=== PATIENT | male | born 1950 | race African-American/Black ===

== ENCOUNTER 2017-04-01 14:44 | Emergency (ER) | payer OTHER, MEDICARE ==
[~2017-04-01] VITALS: Ht 166.4 cm; Wt 73.5 kg
[~2017-04-01 14:44] MED LIST: FLOMAX(MONOGRA0.4 MG PO; KEFLEX500 M1 PO; LEVEMIR 10100 UNITS/ SC; METFORMIN ER500 MG PO; MOTRIN800 MG PO; PERCOCET 325 MG1 TA2 PO; ZOFRAN ODT4 MG PO
[2017-04-01 15:03] VITALS: BP 147/77
--- NOTE | 2017-04-01 15:52 | RADIOLOGY REPORT ---
EXAMINATION: XR CHEST CLINICAL INFORMATION: Cough, yellow sputum COMPARISON: 01/21/2012 TECHNIQUE: 2 views of the chest were obtained. FINDINGS: The lungs are clear with no focal consolidation. No evidence of pneumothorax, pulmonary edema, or pleural effusions. The cardiomediastinal silhouette is unremarkable. No acute osseous findings. IMPRESSION: No acute cardiopulmonary findings.
--- NOTE | 2017-04-01 15:58 | ED INFLUENZA/URI COMPLAINT ---
History of Present Illness General Chief Complaint: Upper Respiratory Sx/Fever Stated Complaint: ?URI Source: patient Exam Limitations: no limitations Vital Signs & Intake/Output Vital Signs & Intake/Output Vital Signs Date Time Temp Pulse Resp B/P B/P Pulse O2 O2 Flow FiO2 Mean Ox Delivery Rate 04/01 1503 97.1 96 18 147/77 96 Room Air Allergies Coded Allergies: NO KNOWN ALLERGIES (09/16/15) Reconcile Medications Azithromycin (Zithromax) 250 MG TABLET 1 DP PO AD BRONCHITIS 2 the first day followed by 1 for days 2-5 Cephalexin (Keflex) 500 MG CAPSULE 1 CAP PO 4 TIMES/DAY infection Codeine Phosphate/Guaifenesi (Cheratussin AC Syrup) 10 MG-100 MG/5 ML LIQUID 10 ML PO Q6-8 PRN COUGH Ibuprofen (Motrin) 800 MG TAB 1 TAB PO 4 TIMES/DAY PRN PAIN Insulin Detemir (Levemir) 100 UNIT/ML VIAL DM (Reported) Metformin Hydrochloride (Metformin ER) [address] 1 TAB PO DAILY DM (Reported ) Ondansetron (Zofran Odt) 4 MG TAB.RAPDIS 1 TAB PO 4 TIMES/DAY PRN NAUSEA Ondansetron (Zofran Odt) 4 MG TAB.RAPDIS 1 TAB PO Q8HR PRN NAUSEA OXYCODONE HCL/ACETAMINOPHEN (Percocet 5-325 MG Tablet) 325 MG/5 MG TAB 1-2 TAB PO Q4-6 PRN PRN PAIN TWENTY...[id number] Tamsulosin Hydrochloride (Flomax) 0.4 MG CAP.ER.24H 1 CAP PO DAILY kidney stones Triage Note: PT COMPLAINS OF COUGH X 6 DAYS PRODUCTIVE OF YELLOW SPUTUM Triage Nurses Notes Reviewed? yes Onset: Gradual Duration: day(s): (6) Timing: recent history Severity: mild, moderate No Modifying Factors: none HPI: 66 year old male who presents to [facility] ER for chief complaint of cough and green sputum production for the past 6 days. Denies any fever, chills, chest pain. No recent travel or sick contacts. Past History Travel History Traveled to [place] past 21 day No Medical History Any Pertinent Medical History? see below for history Neurological: NONE EENT: NONE Cardiovascular: hypertension Respiratory: asthma Gastrointestinal: NONE Hepatic: NONE Renal: nephrolithiasis Musculoskeletal: NONE Psychiatric: NONE Endocrine: diabetes Blood Disorders: NONE Cancer(s): NONE SPECIAL SHOPPER/Reproductive: NONE Surgical History Surgical History: non-contributory Psychosocial History What is your primary language Romansh Tobacco Use: Never used ETOH Use: denies use Illicit Drug Use: denies illicit drug use Family History Hx Contributory? No Review of Systems Review of Systems Constitutional: Denies: chills, fever. EENTM: Reports: no symptoms. Respiratory: Reports: cough, short of breath, sputum production. Cardiovascular: Denies: chest pain, palpitations. GI: Denies: abdominal pain, nausea, changes in stool. Genitourinary: Reports: no symptoms. Musculoskeletal: Reports: no symptoms. Skin: Reports: no symptoms. Neurological/Psychological: Reports: no symptoms. Hematologic/Endocrine: Denies: bruising, bleeding, polyuria, polydipsia. Immunologic/Allergic: Denies: splenectomy. All Other Systems: Reviewed and Negative Physical Exam Physical Exam General Appearance: well developed/nourished, alert, awake Head: atraumatic, normal appearance Eyes: Bilateral: normal appearance, PERRL, EOMI. Ears, Nose, Throat: normal ENT inspection, moist mucous membrane, hearing grossly normal Neck: normal inspection, supple, full range of motion Respiratory: decreased breath sounds Cardiovascular: regular rate/rhythm, normal peripheral pulses Peripheral Pulses: 2+ radial (R), 2+ radial (L) Gastrointestinal: normal bowel sounds, soft, non-tender Neurologic/Psych: no motor/sensory deficits, awake, alert, oriented x 3 Skin: intact, normal color, warm/dry Core Measures Severe Sepsis Present: No Septic Shock Present: No Progress Differential Diagnosis: pneumonia, uri, bronchitis Plan of Care: CXR ORDERED. SOLITARIO LEON SCRIPTS CALLED IN Diagnostic Imaging: Viewed by Me: Radiology Read. Discussed w/RAD: Radiology Read. CXR Impression: PATIENT: YARED DIXON PRESENT AGE: 66 PATIENT ACCOUNT NO: [id number] : 50 LOCATION: [facility] ORDERING PHYSICIAN: WILBER ESPINOZA DO SERVICE DATE: 04/01/17-4079 EXAM TYPE: RAD - XRY-CHEST XRAY, PA AND LATERAL EXAMINATION: XR CHEST CLINICAL INFORMATION: Cough, yellow sputum COMPARISON: 01/21/2012 TECHNIQUE: 2 views of the chest were obtained. FINDINGS: The lungs are clear with no focal consolidation. No evidence of pneumothorax, pulmonary edema, or pleural effusions. The cardiomediastinal silhouette is unremarkable. No acute osseous findings. IMPRESSION: No acute cardiopulmonary findings. DICTATED BY: BREEZY SALOMON MD DATE/TIME DICTATED:07/11 BE[facility]AVIORAL HEALTH THERAPIST:MARCELA DATE/TIME TRANSCRIBED:04/01/171547 CONFIDENTIAL, DO NOT COPY WITHOUT APPROPRIATE AUTHORIZATION. <Electronically signed in Other Vendor System> SIGNED BY: BREEZY SALOMON MD 04/01/17 1552 Initial ED EKG: none Departure Departure Time of Disposition: 1622 Disposition: HOME OR SELF CARE Condition: Stable Clinical Impression Primary Impression: Bronchitis Referrals: TONE MACHUCA,ILA Barrientso (PCP/Family) Additional Instructions: katharine cisneros directed follow up with Dr. Kerr in the office return as needed. Departure Forms: Customer Survey General Discharge Information Prescriptions: Current Visit Scripts Azithromycin (Zithromax) 1 DP PO AD #6 TAB 2 the first day followed by 1 for days 2-5 Codeine Phosphate/Guaifenesi (Cheratussin AC Syrup) 10 ML PO Q6-8 PRN COUGH #150 ML
[2017-04-01] MEDS ORDERED: ZITHROMAX250 M2 PO (16:22)
[2017-04-01] MEDS ORDERED: CHERATUSSIN AC118 M1 PO (16:22)
== END 2017-04-01 17:02 ==
LOC: ERH 14:44
DX: J40 Bronchitis, not specified as acute or chronic (principal)